=== PATIENT | female | born 1950 | race Caucasian/White ===

== ENCOUNTER 2021-08-02 14:00 | Outpatient (RCR) | payer MEDICARE, BC, SELFPAY | END 2021-08-18 17:00 | disposition home or self-care (01) | LOC: PT.CARL 14:00 | PROVIDERS: Visit Provider Nurse Practitioner | DX: M79.604 Pain in right leg (principal); M79.605 Pain in left leg | CPT/HCPCS: 97010; 97110; 97140; 97163; 97530 ==

== ENCOUNTER 2022-01-03 14:00 | Outpatient (RCR) | payer MEDICARE, BC, SELFPAY | END 2022-01-09 11:28 | disposition home or self-care (01) | LOC: PT.CARL 14:00 | PROVIDERS: Visit Provider Orthopaedic Surgery | DX: M16.11 Unilateral primary osteoarthritis, right hip (principal); Z96.641 Presence of right artificial hip joint | CPT/HCPCS: 97010; 97110; 97116; 97163; 97530 ==

== ENCOUNTER 2022-02-14 14:00 | Outpatient (RCR) | payer MEDICARE, BC, SELFPAY | END 2022-03-07 13:25 | disposition home or self-care (01) | LOC: PT.CARL 14:00 | PROVIDERS: Visit Provider Nurse Practitioner Family | DX: M25.551 Pain in right hip (principal); R53.1 Weakness | CPT/HCPCS: 97110; 97112; 97163; 97530 ==

== ENCOUNTER → 2022-11-13 17:34 | Outpatient (CLI) | payer MEDICARE, BC, SELFPAY ==
[2022-11-13 19:18] LABS: Basophils % 0.1 % (0.1-2.0); Eosinophils # 0.2 K/mm3 (0.0-0.4); Eosinophils % 4.2 % (0.1-12.0); Hematocrit 30.4 % (37.0-47.0); Hemoglobin 9.5 g/dL (12.2-16.2); Lymphocytes # 0.3 K/mm3 (0.7-4.5); Lymphocytes % 8.5 % (10-50); Mean Corpuscular HGB Conc 31.3 g/dL (31.8-35.4); Mean Corpuscular Hemoglobin 29.6 pg (27.0-31.2); Mean Corpuscular Volume 94.6 fl (81-99); Mean Platelet Volume 8.7 fl (7.4-10.4); Monocytes # 0.4 K/mm3 (0.1-1.0); Neutrophils % 77.2 % (37.0-80.0); Platelet Count 372 K/mm3 (142-424); Red Blood Count 3.21 M/mm3 (4.20-5.40); Red Cell Distribution Width 16.9 % (11.5-17.5); White Blood Count 3.9 K/mm3 (4.8-10.8)
== END ==
PROVIDERS: Orthopaedic Surgery; PCP Nurse Practitioner; Visit Provider Nurse Practitioner
DX: D62 Acute posthemorrhagic anemia (principal)
CPT/HCPCS: 85025